=== PATIENT | female | born 1995 | race Caucasian/White ===

== ENCOUNTER 2016-06-24 12:04 | Emergency (ER) | payer MEDICAID ==
[~2016-06-24] VITALS: Wt 88.0 kg
[~2016-06-24 12:04] MED LIST: ACET325T33 PO; CIPR500T4 PO; IBUP-1542 PO
[2016-06-24] MEDS ORDERED: FLUT9.9S NASAL (12:28)
[2016-06-24] MEDS ORDERED: IBUP-1542 PO (12:28)
[2016-06-24] MEDS ORDERED: AMO500 PO (12:28)
--- NOTE | 2016-06-24 12:56 | ERD ---
ER Documentation Chief Complaint Date/Time DATE: 06/24/16 TIME: 12:37 Chief Complaint COUGH, FEVER AT HOME, THROAT PAIN, ONSET 3 DAYS HPI Patient is a 20-year-old female complaining of sore throat associated with dysphagia, fever, runny nose and intermittent productive cough with yellow sputum for 4 days. Patient denies any headache, chest pain or shortness of breath. Patient states that her father has had the same symptoms before she got sick. Denies any travel outside the country. No medical surgical history. No allergies. ROS All systems reviewed and are negative except as per history of present illness. Medications Home Meds Active Scripts Fluticasone Propionate (Flonase Allergy Relief) 9.9 Ml [place].susp, 1 SPRAY NASAL DAILY, #1 BOTTLE TO EACH NOSTRIL Prov:LORRAINE HARO 06/24/16 Ibuprofen* (Motrin*) 600 Mg Tab, 600 MG PO Q6H Y for PAIN AND OR ELEVATED TEMP, #30 TAB Prov:LORRAINE HARO 06/24/16 Amoxicillin* (Amoxicillin*) 500 Mg Cap, 500 MG PO BID for 10 Days, CAP Prov:LORRAINE HARO 06/24/16 Acetaminophen* (Tylenol*) 325 Mg Tablet, 2 TAB PO Q8 Y for PAIN AND OR ELEVATED TEMP, #20 TAB Prov:ALLAN SEARS DO 01/07/16 Ibuprofen* (Motrin*) 600 Mg Tab, 600 MG PO Q8, #15 TAB Prov:ALLAN SEARS DO 01/07/16 Ciprofloxacin Hcl* (Ciprofloxacin Hcl*) 500 Mg Tablet, 500 MG PO BID for 10 Days , TAB Prov:ALLAN SEARS DO 01/07/16 Allergies Allergies: Coded Allergies: No Known Allergy (Unverified , 05/04/14) PMhx/Soc Medical and Surgical Hx: pt denies Medical Hx, pt denies Surgical Hx Hx Alcohol Use: No Hx Substance Use: No Hx Tobacco Use: No Smoking Status: Never smoker Physical Exam Vitals Vital Signs Date Time Temp Pulse Resp B/P Pulse Ox O2 Delivery O2 Flow Rate FiO2 06/24/16 12:08 99.4 83 18 137/62 98 Physical Exam Physical Exam CONST: Well-developed, well-nourished, in no acute distress. Nontoxic in appearance. HEENT: Atraumatic. Normal Conjunctiva. EOM intact. Yellowish fluid discharge noted on bilateral ear canals. External ear is normal. Tonsillar erythema with slight swelling grade 1. No Uvular deviation. Moist mucous membranes. Supple neck. No meningismus. No submandibular induration. RESP: Clear to auscultation bilaterally. No wheezing. CARDIO: Regular rate and rhythm, no murmurs. ABD: Soft, non tender, non distended. Normal bowel sounds. No McBurney's point tenderness. No guarding or rigidity. No peritoneal signs. SKIN: No petechiae or rashes. BACK: No midline or flank tenderness. EXT: No cyanosis or edema. Distal pulses equal and bilateral. NEURO: Awake and alert, appropriate for age Procedures/MDM EMERGENCY DEPARTMENT COURSE/MEDICAL DECISION MAKING This is a 20-year-old female who comes to emergency room secondary to complaints of sore throat, dysphagia, runny nose, fever and cough for 4 days. Patient is afebrile upon assessment. Tonsillar erythema and swelling grade 1 noted without uvular deviation. Lungs are clear upon auscultation. My primary diagnosis is pharyngitis. Secondary diagnosis are sore throat Differential diagnoses considered, included but not limited to pneumonia, bronchitis, influenza, upper respiratory infection, asthma, peritonsillar abscess, otitis media, otitis externa. Pt is hemodynamically stable upon reassessment. The patient was discharged for outpatient management with a prescription for amoxicillin, Flonase and ibuprofen. The patient was advised to followup with their PMD in 1-2 days and to return to the Emergency Department if there are any new or worsening symptoms. The patient understood and agreed with the diagnosis, treatment and plan. Patient is stable for discharge at this time. Departure Diagnosis: Primary Impression: Pharyngitis, acute Pharyngitis/tonsillitis etiology: unspecified etiology Qualified Code: J02.9 - Acute pharyngitis, unspecified etiology Additional Impression: Sore throat Condition: Stable Patient Instructions: Self-Care for Sore Throats, Pharyngitis, Strep (Presumed) Referrals: COMMUNITY CLINICS YOU HAVE RECEIVED A MEDICAL SCREENING EXAM AND THE RESULTS INDICATE THAT YOU DO NOT HAVE A CONDITION THAT REQUIRES URGENT TREATMENT IN THE EMERGENCY DEPARTMENT. FURTHER EVALUATION AND TREATMENT OF YOUR CONDITION CAN WAIT UNTIL YOU ARE SEEN IN YOUR DOCTORS OFFICE WITHIN THE NEXT 1-2 DAYS. IT IS YOUR RESPONSIBILITY TO MAKE AN APPOINTMENT FOR FOLOW-UP CARE. IF YOU HAVE A PRIMARY DOCTOR --you should call your primary doctor and schedule an appointment IF YOU DO NOT HAVE A PRIMARY DOCTOR YOU CAN CALL OUR PHYSICIAN REFERRAL HOTLINE AT IF YOU CAN NOT AFFORD TO SEE A PHYSICIAN YOU CAN CHOSE FROM THE FOLLOWING [facility] [address] [facility] [address] [facility] [address] [facility] [address] [facility] [address] [facility]. [facility] [address] [facility]. [facility] YOU HAVE RECEIVED A MEDICAL SCREENING EXAM AND THE RESULTS INDICATE THAT YOU DO NOT HAVE A CONDITION THAT REQUIRES URGENT TREATMENT IN THE EMERGENCY DEPARTMENT. FURTHER EVALUATION AND TREATMENT OF YOUR CONDITION CAN WAIT UNTIL YOU ARE SEEN IN YOUR DOCTORS OFFICE WITHIN THE NEXT 1-2 DAYS. IT IS YOUR RESPONSIBILITY TO MAKE AN APPOINTMENT FOR FOLOW-UP CARE. IF YOU HAVE A PRIMARY DOCTOR --you should call your primary doctor and schedule and appointment IF YOU DO NOT HAVE A PRIMARY DOCTOR YOU CAN CALL OUR PHYSICIAN REFERRAL HOTLINE AT . IF YOU CAN NOT AFFORD TO SEE A PHYSICIAN YOU CAN CHOSE FROM THE FOLLOWING [facility]: [facility] [address] [place] [address] [facility] [address] [place] [address] [facility] [address] [place] [address] Additional Instructions: Follow-up with your primary care physician in 1-2 days. Return to the emergency department immediately should you have any new or worsening symptoms, uncontrolled fevers, or other unexplained symptoms. Take all medications as directed. LORRAINE HARO Jun 24, 2016 12:56
== END 2016-06-24 13:02 | disposition home or self-care (01) ==
LOC: FTE 12:04
DX: J02.9 Acute pharyngitis, unspecified (principal)
CPT/HCPCS: 99283

== ENCOUNTER 2016-11-05 08:09 | Emergency (ER) | payer MEDICAID ==
[~2016-11-05] VITALS: Ht 157.5 cm; Wt 90.0 kg
[~2016-11-05 08:09] MED LIST changes: +AMO500 PO; +FLUT9.9S NASAL
[2016-11-05 08:13] VITALS: Ht 157.5 cm; Wt 90.0 kg
[2016-11-05] MEDS ORDERED: IBUPROFEN 200 MG TAB PO ONE (09:00)
[2016-11-05] MEDS ORDERED: IBUP400T22 PO (09:32)
[2016-11-05] MEDS ORDERED: AMO500 PO (09:32)
--- NOTE | 2016-11-05 09:51 | ERD ---
ER Documentation Chief Complaint Date/Time DATE: 11/05/16 TIME: 09:47 Chief Complaint sore throat x 3 days HPI This is a 21-year-old female presents emergency department for sore throat and headache. Patient states she developed headache 2 days ago and sore throat 1 day ago. Patient states she has pain with swallowing however no difficulty swallowing or drooling. No muffled voice. Patient believes he may have had tactile fevers at home yesterday however no fever today. Patient took Advil last night and states this helped with pain. ROS All systems reviewed and are negative except as per history of present illness. Medications Home Meds Active Scripts Ibuprofen* (Motrin*) 400 Mg Tab, 400 MG PO Q6, #15 TAB Prov:KATERINA ASH NP 11/05/16 Amoxicillin* (Amoxicillin*) 500 Mg Cap, 500 MG PO BID for 10 Days, CAP Prov:KATERINA ASH NP 11/05/16 Fluticasone Propionate (Flonase Allergy Relief) 9.9 Ml [place].susp, 1 SPRAY NASAL DAILY, #1 BOTTLE TO EACH NOSTRIL Prov:LORRAINE HARO 06/24/16 Ibuprofen* (Motrin*) 600 Mg Tab, 600 MG PO Q6H Y for PAIN AND OR ELEVATED TEMP, #30 TAB Prov:LORRAINE HARO 06/24/16 Amoxicillin* (Amoxicillin*) 500 Mg Cap, 500 MG PO BID for 10 Days, CAP Prov:LORRAINE HARO 06/24/16 Acetaminophen* (Tylenol*) 325 Mg Tablet, 2 TAB PO Q8 Y for PAIN AND OR ELEVATED TEMP, #20 TAB Prov:ALLAN SEARS DO 01/07/16 Ibuprofen* (Motrin*) 600 Mg Tab, 600 MG PO Q8, #15 TAB Prov:ALLAN SEARS DO 01/07/16 Ciprofloxacin Hcl* (Ciprofloxacin Hcl*) 500 Mg Tablet, 500 MG PO BID for 10 Days , TAB Prov:ALLAN SEARS DO 01/07/16 Allergies Allergies: Coded Allergies: No Known Allergy (Unverified , 11/05/16) PMhx/Soc Medical and Surgical Hx: pt denies Medical Hx, pt denies Surgical Hx Hx Alcohol Use: No Hx Substance Use: No Hx Tobacco Use: No Smoking Status: Never smoker Physical Exam Vitals Vital Signs Date Time Temp Pulse Resp B/P Pulse Ox O2 Delivery O2 Flow Rate FiO2 11/05/16 08:13 97.4 91 18 125/65 97 Physical Exam Const: alert, no acute distress Head: Atraumatic Eyes: Normal Conjunctiva ENT: Normal External Ears, Nose and Mouth. Erythema to posterior pharynx without exudate. No peritonsillar abscess. Non-kissing tonsils. TMs normal bilaterally. Neck: Full range of motion..~ No meningismus. Tender left submandibular lymph node Resp: Clear to auscultation bilaterally. No wheezing, rhonchi or crackles. No stridor or labored breathing. Cardio: Regular rate and rhythm, no murmurs Abd: Soft, non tender, non distended. Normal bowel sounds Skin: No petechiae or rashes Back: No midline or flank tenderness Ext: No cyanosis, or edema Neur: Awake and alert Psych: Normal Mood and Affect Results 24 hrs Current Medications Medications (Trade) Dose Ordered Sig/Kailash Route PRN Reason Start Time Stop Time Status Last Admin Dose Admin Ibuprofen (Motrin) 400 mg ONCE ONCE PO 11/05/16 09:00 11/05/16 09:01 DC 11/05/16 08:59 Procedures/MDM MDM: This is a 21-year-old female presenting to the emergency department for sore throat and headache. Patient has had sore throat since yesterday. No muffled voice or difficulty swallowing. Patient has painful swallowing. Tactile fever yesterday. Afebrile upon arrival to ED. Rapid strep test is positive. Differential diagnosis includes but not limited to strep pharyngitis, pneumonia , viral pharyngitis, influenza, coxsackievirus, herpes simplex virus, Elen- Matias virus, Respiratory syncytial virus and otitis media. Patient likely has strep pharyngitis. Patient is appropriate for outpatient management and will be discharged with prescription for Amoxicillin and Motrin. Instructed patient to follow up with primary care provider in the next 2-3 days for reassessment.Return to ED for any high fever, chest pain, difficulty breathing, shortness breath, wheezing, vomiting, diarrhea, abdominal pain or any new or worsening symptoms. Patient verbalizes understanding. All questions answered at discharge. Departure Diagnosis: Primary Impression: Strep pharyngitis Condition: Stable Patient Instructions: Strep Throat Referrals: COMMUNITY CLINICS YOU HAVE RECEIVED A MEDICAL SCREENING EXAM AND THE RESULTS INDICATE THAT YOU DO NOT HAVE A CONDITION THAT REQUIRES URGENT TREATMENT IN THE EMERGENCY DEPARTMENT. FURTHER EVALUATION AND TREATMENT OF YOUR CONDITION CAN WAIT UNTIL YOU ARE SEEN IN YOUR DOCTORS OFFICE WITHIN THE NEXT 1-2 DAYS. IT IS YOUR RESPONSIBILITY TO MAKE AN APPOINTMENT FOR FOLOW-UP CARE. IF YOU HAVE A PRIMARY DOCTOR --you should call your primary doctor and schedule an appointment IF YOU DO NOT HAVE A PRIMARY DOCTOR YOU CAN CALL OUR PHYSICIAN REFERRAL HOTLINE AT IF YOU CAN NOT AFFORD TO SEE A PHYSICIAN YOU CAN CHOSE FROM THE FOLLOWING [facility] [address] [facility] [facility]. [facility] [address] [facility] [address] [facility]. [facility] [address] [facility] [address] [facility]. [facility] [address] [facility]. [facility] YOU HAVE RECEIVED A MEDICAL SCREENING EXAM AND THE RESULTS INDICATE THAT YOU DO NOT HAVE A CONDITION THAT REQUIRES URGENT TREATMENT IN THE EMERGENCY DEPARTMENT. FURTHER EVALUATION AND TREATMENT OF YOUR CONDITION CAN WAIT UNTIL YOU ARE SEEN IN YOUR DOCTORS OFFICE WITHIN THE NEXT 1-2 DAYS. IT IS YOUR RESPONSIBILITY TO MAKE AN APPOINTMENT FOR FOLOW-UP CARE. IF YOU HAVE A PRIMARY DOCTOR --you should call your primary doctor and schedule and appointment IF YOU DO NOT HAVE A PRIMARY DOCTOR YOU CAN CALL OUR PHYSICIAN REFERRAL HOTLINE AT . IF YOU CAN NOT AFFORD TO SEE A PHYSICIAN YOU CAN CHOSE FROM THE FOLLOWING [facility] INSTITUTIONS: [facility] [address] [place] [address] [facility] [address] [place] [address] [facility] [address] [place] [address] [employer] [place] [address] [facility] [address] [place] [address]ABUSLEME, KIRTI [address] [place] [address] DR. ALBERTO AYAZ [address] [place] [address] DR CHAN, [facility] [address], [address], [place] [address] [facility] [address] [place] [address] [facility] [address] [place] [address] [address] [facility] [address] - DR WATKINS, KRISHNA [address], [place] [address] DR LEA, PATO [address] [facility]. [address], [facility] [address] [address] AGUILAR, [facility] [address] [place], [place] [id number] Additional Instructions: Call your primary care doctor TOMORROW for an appointment during the next 2-3 days.See the doctor sooner or return here if your condition worsens before your appointment time. Return to ED for any high fever, chest pain, difficulty breathing, shortness breath, wheezing, vomiting, diarrhea, abdominal pain or any new or worsening symptoms. KATERINA ASH NP Nov 05, 2016 09:51
== END 2016-11-05 09:45 | disposition home or self-care (01) ==
LOC: FTE 08:09
DX: J02.0 Streptococcal pharyngitis (principal)
CPT/HCPCS: 87880; Z7502; Z7610; 99283

== ENCOUNTER 2017-03-05 20:07 | Emergency (ER) | payer MEDICAID, OTHER ==
[~2017-03-05] VITALS: Ht 154.9 cm; Wt 90.4 kg
[~2017-03-05 20:07] MED LIST changes: -AMO500 PO; +AMOX500C2 PO; +IBUP400T22 PO
[2017-03-05 20:35] VITALS: Ht 154.9 cm; Wt 90.4 kg
[2017-03-05 22:23] VITALS: PULSE 75
--- NOTE | 2017-03-05 23:11 | RADRPT ---
PROCEDURE: XR Chest. CLINICAL INDICATION: Shortness of breath. TECHNIQUE: Single frontal view of the chest was obtained COMPARISON: None FINDINGS: The heart and mediastinum are within normal limits. The lungs are clear. There is no pleural effusion or pneumothorax. The osseous structures are unremarkable. IMPRESSION: 1. No acute cardiopulmonary disease. RPTAT:AAJJ Physician Beau Date Time Electronically viewed and signed by Eduardo Fu Physician on 03/05/2017 23:10 QL/
[2017-03-05] MEDS ORDERED: CYCL-319 PO (23:18)
[2017-03-05] MEDS ORDERED: IBUP400T22 PO (23:18)
--- NOTE | 2017-03-05 23:37 | ERD ---
ER Documentation Chief Complaint Chief Complaint c/o SOB upon ambulating with pain on back, lower back, back thighs HPI 1-year-old female presenting to the emergency department complaining of right lower back pain for the past 2 days. Patient states that she has shortness of breath when she starts walking. She denies any dysuria, fevers, chest pain. Denies any recent traveling, oral contraceptives. Denies taking any medications for this ROS All systems reviewed and are negative except as per history of present illness. Medications Home Meds Active Scripts Cyclobenzaprine Hcl* (Cyclobenzaprine Hcl*) 10 Mg Tablet, 10 MG PO TID, #30 TAB Prov:MARAH FARMER PA-C 03/05/17 Ibuprofen* (Ibuprofen*) 400 Mg Tablet, 400 MG PO Q6H Y for PAIN, #30 TAB Prov:MARAH FARMER PA-C 03/05/17 Ibuprofen* (Motrin*) 400 Mg Tab, 400 MG PO Q6, #15 TAB Prov:KATERINA ASH NP 11/05/16 Amoxicillin* (Amoxicillin*) 500 Mg Cap, 500 MG PO BID for 10 Days, CAP Prov:KATERINA ASH NP 11/05/16 Fluticasone Propionate (Flonase Allergy Relief) 9.9 Ml [place].susp, 1 SPRAY NASAL DAILY, #1 BOTTLE TO EACH NOSTRIL Prov:LORRAINE HARO 06/24/16 Ibuprofen* (Motrin*) 600 Mg Tab, 600 MG PO Q6H Y for PAIN AND OR ELEVATED TEMP, #30 TAB Prov:LORRAINE HARO 06/24/16 Amoxicillin* (Amoxicillin*) 500 Mg Cap, 500 MG PO BID for 10 Days, CAP Prov:LORRAINE HARO 06/24/16 Acetaminophen* (Tylenol*) 325 Mg Tablet, 2 TAB PO Q8 Y for PAIN AND OR ELEVATED TEMP, #20 TAB Prov:ALLAN SEARS DO 01/07/16 Ibuprofen* (Motrin*) 600 Mg Tab, 600 MG PO Q8, #15 TAB Prov:ALLAN SEARS DO 01/07/16 Ciprofloxacin Hcl* (Ciprofloxacin Hcl*) 500 Mg Tablet, 500 MG PO BID for 10 Days , TAB Prov:ALLAN SEARS DO 01/07/16 Allergies Allergies: Coded Allergies: No Known Allergy (Unverified , 7/24/17) PMhx/Soc Medical and Surgical Hx: pt denies Medical Hx, pt denies Surgical Hx Hx Alcohol Use: No Hx Substance Use: No Hx Tobacco Use: No Smoking Status: Never smoker Physical Exam Vitals Vital Signs Date Time Temp Pulse Resp B/P Pulse Ox O2 Delivery O2 Flow Rate FiO2 03/05/17 22:23 75 100 Room Air 03/05/17 20:35 98.4 74 20 119/65 95 Physical Exam GENERAL: WD/WN, in no apparent distress, non-toxic appearing HENT: NC/AT EYES: Conjunctiva normal NECK: Supple PULM: Normal labored breathing CV: Good capillary refill GI: Non-distended, no guarding BACK: no deformities noted, normal spinal curvature, TTP on lumbar region, non- tender on spine midline, EXT: No clubbing, cyanosis, or edema NEURO: Moves on all fours, sensation intact, normal gait SKIN: intact PSYCH: Normal mood Procedures/MDM This is a 21-year-old female presenting to the emergency department complaining of right lumbar back pain and shortness of breath for the past few days. On examination, patient has no evidence of respiratory distress. She has 100% pulse ox, she appears well. It appears the patient has anxiety. There is no evidence of any vertebral fracture, cauda equina. Patient was tender to palpation a right lumbar region, signs and symptoms consistent with a strain. I discussed to follow-up with her primary care physician, prescription for ibuprofen and Flexeril was provided. Discussed return to the ER for any worsening signs or symptoms. She understands and agrees this plan Departure Diagnosis: Primary Impression: Shortness of breath Additional Impression: Lumbar strain Condition: Stable Patient Instructions: Coping with Shortness of Breath: Controlling Stress, Causes of Lumbar (Low Back) Pain Additional Instructions: FOLLOW UP WITH YOUR PRIMARY CARE PHYSICIAN TOMORROW.Return to this facility if you are not improving as expected. Take all medicines as directed. Return to this facility if you are not improving as expected. You have been given a medicine which may cause drowsiness.DO NOT DRIVE OR OPERATE DANGEROUS MACHINERY while taking this medicine! MARAH FARMER PA-C Mar 05, 2017 23:37
[2017-03-05 23:55] LABS: URINE BLOOD (Dip) POC Trace-lysed (NEGATIVE)
[2017-03-05] MEDS ORDERED: CEPH-443 PO (23:58)
== END 2017-03-06 00:04 | disposition home or self-care (01) ==
LOC: FTE 20:07
DX: R06.02 Shortness of breath (principal); S39.012A Strain of muscle, fascia and tendon of lower back, initial encounter; X58.XXXA Exposure to other specified factors, initial encounter; Y92.9 Unspecified place or not applicable
CPT/HCPCS: 71010; 81003; Z7502

== ENCOUNTER 2018-05-12 22:17 | Emergency (ER) | payer MEDICAID, OTHER ==
[~2018-05-12] VITALS: Ht 160 cm; Wt 91.9 kg
[~2018-05-12 22:17] MED LIST changes: +CEPH-443 PO; +CYCL10TA7 PO; +IBUP-1541 PO; +IBUP-1561 PO; -IBUP400T22 PO
[2018-05-12 22:22] VITALS: Ht 160 cm; Wt 91.9 kg
[2018-05-13] MEDS ORDERED: ONDANSETRON (ODT) 4 MG TAB ODT STA (01:12)
--- NOTE | 2018-05-13 01:20 | ERD ---
ER Documentation Chief Complaint Chief Complaint nausea, abd pain, headache, throat pain x 3 days HPI Patient is a 22-year-old female with no past medical history presents the ER for concerns of multiple complaints. Patient states she has had left upper quadrant abdominal pain for the last 3 days. Patient states her symptoms started after eating a pizza with hot Cheetos on it. Patient does admit to eating spicy food on a daily basis and states she often does eat helping us with her foods. Patient states she is felt nauseous for the last few days. Patient denies any vomiting. Patient denies fevers or chills. Patient denies any cough. Patient denies any chest pain or shortness of breath. Patient does also admit to throat pain. She denies any drooling, trismus or hypotension of her neck. Patient reports a mild headache. She denies any photophobia, phonophobia, neck pain, neck stiffness. Patient denies worse headache of life. She has not taking any medication for symptoms. Patient denies . Patient states she has an IUD. ROS All systems reviewed and are negative except as per history of present illness. Medications Home Meds Active Scripts Acetaminophen* (Tylophen*) 500 Mg Capsule, 1 CAP PO Q6H PRN for PAIN AND OR ELEVATED TEMP, #20 CAP Prov:JULIÁN KO PA-C 05/13/18 Ondansetron (Ondansetron Odt) 4 Mg Tab.rapdis, 4 MG PO Q6H PRN for NAUSEA AND/OR VOMITING, #10 TAB Prov:JULIÁN KO PA-C 05/13/18 Famotidine* (Pepcid*) 20 Mg Tablet, 20 MG PO DAILY for 30 Days, TAB Prov:JULIÁN KO PA-C 05/13/18 Cephalexin* (Keflex*) 500 Mg Capsule, 500 MG PO TID for 7 Days, CAP Prov:MARAH FARMER PA-C 03/05/17 Cyclobenzaprine Hcl* (Cyclobenzaprine Hcl*) 10 Mg Tablet, 10 MG PO TID, #30 TAB Prov:MARAH FARMER PA-C 03/05/17 Ibuprofen* (Ibuprofen*) 400 Mg Tablet, 400 MG PO Q6H PRN for PAIN, #30 TAB Prov:MARAH FARMER PA-C 03/05/17 Ibuprofen* (Motrin*) 400 Mg Tab, 400 MG PO Q6, #15 TAB Prov:NILSAGREGORIAKATERINA Jan NARVAEZ 11/05/16 Amoxicillin* (Amoxicillin*) 500 Mg Cap, 500 MG PO BID for 10 Days, CAP Prov:KATERINA ASH Jan NARVAEZ 11/05/16 Fluticasone Propionate (Flonase Allergy Relief) 9.9 Ml [place].susp, 1 SPRAY NASAL DAILY, #1 BOTTLE TO EACH NOSTRIL Prov:LORRAINE HARO 06/24/16 Ibuprofen* (Motrin*) 600 Mg Tab, 600 MG PO Q6H PRN for PAIN AND OR ELEVATED TEMP, #30 TAB Prov:LORRAINE HARO 06/24/16 Amoxicillin* (Amoxicillin*) 500 Mg Cap, 500 MG PO BID for 10 Days, CAP Prov:ESTRELLITALORRAINE MOCTEZUMA 06/24/16 Acetaminophen* (Tylenol*) 325 Mg Tablet, 2 TAB PO Q8 PRN for PAIN AND OR ELEVATED TEMP, #20 TAB Prov:RENUALLAN QUINTANA 01/07/16 Ibuprofen* (Motrin*) 600 Mg Tab, 600 MG PO Q8, #15 TAB Prov:ALLAN SEARS 01/07/16 Ciprofloxacin Hcl* (Ciprofloxacin Hcl*) 500 Mg Tablet, 500 MG PO BID for 10 Days, TAB Prov:ALLAN SEARS DO 01/07/16 Allergies Allergies: Coded Allergies: No Known Allergy (Unverified , 11/05/16) PMhx/Soc Medical and Surgical Hx: pt denies Medical Hx, pt denies Surgical Hx Hx Alcohol Use: No Hx Substance Use: No Hx Tobacco Use: No Smoking Status: Never smoker FmHx Family History: No diabetes Physical Exam Vitals Vital Signs Date Temp Pulse Resp B/P (MAP) Pulse Ox O2 O2 Flow FiO2 Time Delivery Rate 05/12/18 99.9 82 20 135/89 99 22:22 (104) Physical Exam GENERAL: Well-developed, well-nourished female. Appears in no acute distress. Speaking in full sentences. HEAD: Normocephalic, atraumatic. EYES: Pupils are equally reactive bilaterally. EOMs grossly intact. No conjunctival erythema. ENT: Moist mucous membranes. Oropharynx is nonerythematous. No exudates noted. No tonsillar swelling noted. No uvula deviation. No kissing tonsils. NECK: Supple. No meningismus. Normal range of motion of the neck. LUNG: Clear to auscultation bilaterally. No rhonchi, wheezing, rales or coarse breath sounds. HEART: Regular rate and rhythm. No murmurs, rubs or gallops. ABDOMEN: Soft, nondistended. Tender to palpation in the left upper quadrant. Positive bowel sounds in all four quadrants. No rebound tenderness, no guarding. (-) McBurney's point tenderness. No CVA tenderness. EXTREMITIES: Equal pulses bilaterally. No peripheral clubbing, cyanosis or edema. No unilateral leg swelling. NEUROLOGIC: Alert and oriented. Moving all four extremities without any difficulty. Normal speech. Steady gait. SKIN: Normal color. Warm and dry. No rashes or lesions. Results 24 hrs Current Medications Medications Dose Sig/Kailash Start Time Status Last (Trade) Ordered Route PRN Stop Time Admin Dose Reason Admin 40 ml ONCE ONCE 05/13/18 DC 05/13/18 Miscellaneous PO 01:30 01:22 Medication 05/13/18 01:31 (Gi Cocktail (2)) Ondansetron 4 mg ONCE STAT 05/13/18 DC 05/13/18 HCl (Zofran ODT 01:12 01:22 Odt) 05/13/18 01:13 Procedures/MDM MEDICAL DECISION MAKING: This is a 22-year-old female presents to the ER for concerns of left upper quadrant pain, nausea, sore throat and headache for the last 3 days. Patient states her symptoms started after eating a pizza with hot Cheetos on it. Patient does admit to spicy food intake. Vital signs were reviewed. Patient is afebrile. ENT exam is within normal limits. Low suspicion for strep pharyngitis, peritonsillar abscess, mononucleosis. Patient's abdominal exam did reveal left upper quadrant tenderness. Patient had no rebound or guarding. Patient had no peritoneal signs. Patient was given a GI cocktail as well as Zofran. Patient was able to tolerate p.o. fluids without any episodes of vomiting. Patient reported improvement in symptoms after receiving GI cocktail. Patient was advised to avoid spicy, fried, acidic foods. At this time, the patient's presentation is most consistent with left upper quadrant pain associated with nausea and headache. Patient was advised to stay hydrated. Differential diagnosis included was not limited to CVA, TIA, acute coronary syndrome, AAA, mesenteric ischemia, lower lobe pneumonia, DKA, bowel perforation, bowel obstruction, cholecystitis, choledocholithiasis, ascending cholangitis, hepatic abscess, pancreatitis, PUD, gastritis, GERD, splenic rupture, diverticulitis, UTI, pyelonephritis, nephrolithiasis, appendicitis, constipation, , ectopic , PID, ovarian torsion or tubo-ovarian abscess. Patient was nontoxic, non-ill appearing prior to discharge. PRESCRIPTIONS: Tylenol, Zofran, Pepcid DISCHARGE: At this time, patient is stable for discharge and outpatient management. I have instructed the patient to follow-up with his/her primary care physician in 1-2 days. I have instructed the patient to promptly return to the ER at any time for any new or worsening symptoms including increased pain, nausea, vomiting, diarrhea, fever, weakness or LOC. The patient and/or family expressed understanding of and agreement with this plan. All questions were answered. Home care instructions were provided. Disclaimer: Inadvertent spelling and grammatical errors are likely due to EHR/dictation software use and do not reflect on the overall quality of patient care. Also, please note that the electronic time recorded on this note does not necessarily reflect the actual time of the patient encounter. Departure Diagnosis: Primary Impression: Multiple complaints Additional Impressions: Headache Headache type: unspecified Headache chronicity pattern: unspecified pattern Intractability: not intractable Qualified Codes: R51 - Headache Nausea LUQ pain Condition: Fair Patient Instructions: Self-Care for Headaches, Nausea, Gerd (Adult) Referrals: [facility] YOU HAVE RECEIVED A MEDICAL SCREENING EXAM AND THE RESULTS INDICATE THAT YOU DO NOT HAVE A CONDITION THAT REQUIRES URGENT TREATMENT IN THE EMERGENCY DEPARTMENT. FURTHER EVALUATION AND TREATMENT OF YOUR CONDITION CAN WAIT UNTIL YOU ARE SEEN I N YOUR DOCTORS OFFICE WITHIN THE NEXT 1-2 DAYS. IT IS YOUR RESPONSIBILITY TO MAKE AN APPOINTMENT FOR FOLOW-UP CARE. IF YOU HAVE A PRIMARY DOCTOR --you should call your primary doctor and schedule an appointment IF YOU DO NOT HAVE A PRIMARY DOCTOR YOU CAN CALL OUR PHYSICIAN REFERRAL HOTLINE AT IF YOU CAN NOT AFFORD TO SEE A PHYSICIAN YOU CAN CHOSE FROM THE FOLLOWING [facility] [id number] [facility] [address] [facility] [address] [facility] [address] [facility] [address] [facility]. [facility] [address] [facility]. [facility] YOU HAVE RECEIVED A MEDICAL SCREENING EXAM AND THE RESULTS INDICATE THAT YOU DO NOT HAVE A CONDITION THAT REQUIRES URGENT TREATMENT IN THE EMERGENCY DEPARTMENT. FURTHER EVALUATION AND TREATMENT OF YOUR CONDITION CAN WAIT UNTIL YOU ARE SEEN IN YOUR DOCTORS OFFICE WITHIN THE NEXT 1-2 DAYS. IT IS YOUR RESPONSIBILITY TO MAKE AN APPOINTMENT FOR FOLOW-UP CARE. IF YOU HAVE A PRIMARY DOCTOR --you should call your primary doctor and schedule and appointment IF YOU DO NOT HAVE A PRIMARY DOCTOR YOU CAN CALL OUR PHYSICIAN REFERRAL HOTLINE AT . IF YOU CAN NOT AFFORD TO SEE A PHYSICIAN YOU CAN CHOSE FROM THE FOLLOWING [facility] INSTITUTIONS[facility] [address] [place] [address] [facility] [address] [place] [address] [facility] [address] [place] [address] Additional Instructions: Avoid spicy, acidic, fried foods. Drink plenty of fluids. Call your primary care doctor TOMORROW for an appointment during the next 1-2 days.See the doctor sooner or return here if your condition worsens before your appointment time. JULIÁN KO PA-C May 13, 2018 01:20
[2018-05-13] MEDS ORDERED: LIDOCAINE/MYLANTA 40 ML BTL PO ONE (01:30)
[2018-05-13] MEDS ORDERED: ONDA4TAB14 PO (01:43)
[2018-05-13] MEDS ORDERED: FAMO-96 PO (01:43)
[2018-05-13] MEDS ORDERED: ACET500C5 PO (01:44)
[2018-05-13 02:00] VITALS: BP 129/76; PULSE 64; RESP 19
== END 2018-05-13 02:00 | disposition home or self-care (01) ==
LOC: FTE 22:17
DX: R51 Headache (principal); R10.12 Left upper quadrant pain
CPT/HCPCS: 99283